=== PATIENT | male | born 1955 | race American Indian/Alaskan Native ===

== ENCOUNTER 2017-08-13 12:06 | Emergency (ER) | payer OTHER ==
[2017-08-13] MEDS ORDERED: Sodium Chloride 0.9% 2.5 ML Syringe FLUSH PRN (12:24)
[2017-08-13] MEDS ORDERED: Sodium Chloride 0.9% 10 ML Syringe FLUSH PRN (12:24)
--- NOTE | 2017-08-13 12:30 | EDM.PDOC ---
ED HPI GENERAL MEDICAL PROBLEM - General Chief Complaint: Lower Extremity Injury/Pain Stated Complaint: R FOOT PAIN Time Seen by Provider: 08/13/17 12:25 Source of Information: Reports: Patient History Limitations: Reports: No Limitations - History of Present Illness INITIAL COMMENTS - FREE TEXT/NARRATIVE: HISTORY AND PHYSICAL: []61-year-old male presenting with right foot pain History of Present Illness: []Patient states for 2 days his foot has been hurting Review of Systems: As per history of present illness and below otherwise all systems reviewed and negative. Past medical history: As per history of present illness and as reviewed below otherwise noncontributory. Surgical history: As per history of present illness and as reviewed below otherwise noncontributory. Social history: No reported history of drug or alcohol abuse. Family history: As per history of present illness and as reviewed below otherwise noncontributory. Physical exam: Alert oriented male who is answering questions in full sentences without any shortness of breath. HEENT: Atraumatic, normocehpalic, pupils reactive, negative for conjunctival pallor or scleral icterus, mucous membranes moist, throat clear, neck supple, nontender, trachea midline. Lungs: Clear to auscultation, breath sounds equal bilaterally, chest non tender. Heart: S1S2, regular, negative for clicks, rubs, or JVD. Abdomen: Soft, nondistended, nontender. Negative for masses or hepatossplenmegaly. Negative for costovertebral tenderness. Pelvis: Stable nontender. Genitourinary: Deferred. Rectal: Deferred Extremities: Right foot is edematous erythema from toes to the ankles there is open scan from the second third and fourth toe up to mid dorsum of his foot negative for cords or calf pain. Neurovascular unremarkable. Neuro: Awake, alert, oriented. Cranial nerves II through XII unremarkable. Cerebellum unremarkable. Motor and sensory unremarkable throughout. Exam nonfocal. Discussed case with Dr. Coburn, who is electronic masking system operator for surgery, she expressed concern for lack of vascular disease at this facility and his care would be improved by transfer to a larger facility. Diagnostics: [CBC CMP amylase lipase TSH blood cultures 2 A1c] Therapeutics: [Zosyn Vancomyacin] Insulin Impression: Gangrenous foot[] Hyperglycemia Plan: []Transfer patient to [facility] emergency room Definitive disposition and diagnosis as appropriate pending reevaluation and review of above. Onset: Gradual Duration: Chronic Location: Reports: Lower Extremity, Right Quality: Reports: Ache Severity: Severe Improves with: Reports: None Worsens with: Reports: None Associated Symptoms: Reports: No Other Symptoms right middle toe Pain Score (Numeric/FACES): 5 - Related Data Allergies Allergy/AdvReac Type Severity Reaction Status Date / Time No Known Allergies Allergy Verified 08/13/17 12:16 Home Meds: Home Meds Diaper,Brief,Adult, Disposable [Procare] 1 tab PO DAILY 08/13/17 [History] Naproxen Sodium [Aleve] 220 mg PO DAILY 08/13/17 [History] metFORMIN [Glucophage XR] 500 mg PO BID 08/13/17 [History] Past Medical History HEENT History: Reports: None Cardiovascular History: Reports: None Respiratory History: Reports: None Gastrointestinal History: Reports: None Genitourinary History: Reports: None Musculoskeletal History: Reports: None Neurological History: Reports: None Psychiatric History: Reports: None Endocrine/Metabolic History: Reports: Diabetes, Type II Hematologic History: Reports: None Immunologic History: Reports: None Oncologic (Cancer) History: Reports: None Dermatologic History: Reports: None - Infectious Disease History Infectious Disease History: Reports: Chicken Pox, Other (See Below) Other Infectious Disease History: childhood - Past Surgical History Head Surgeries/Procedures: Reports: None HEENT Surgical History: Reports: None Cardiovascular Surgical History: Reports: None Respiratory Surgical History: Reports: None GI Surgical History: Reports: None Male Surgical History: Reports: None Endocrine Surgical History: Reports: None Neurological Surgical History: Reports: None Musculoskeletal Surgical History: Reports: None Oncologic Surgical History: Reports: None Dermatological Surgical History: Reports: None Social & Family History - Family History Family Medical History: Noncontributory - Tobacco Use Smoking Status *Q: Never Smoker Second Hand Smoke Exposure: No - Caffeine Use Caffeine Use: Reports: None - Recreational Drug Use Recreational Drug Use: No Review of Systems - Review of Systems Review Of Systems: ROS reveals no pertinent complaints other than HPI. ED EXAM, GENERAL - Physical Exam Exam: See Below Course - Vital Signs Last Recorded V/S: Last Vital Signs Temp 36.8 C 08/13/17 14:02 Pulse 121 H 08/13/17 16:26 Resp 16 08/13/17 16:26 BP 138/87 08/13/17 16:26 Pulse Ox 94 L 08/13/17 16:26 - Orders/Labs/Meds Orders: Active Orders 24 hr Category Date Time Status EKG Documentation Completion [RC] STAT Care 08/13/17 12:24 Active CULTURE BLOOD [BC] Stat Lab 08/13/17 12:35 Received CULTURE BLOOD [BC] Stat Lab 08/13/17 12:47 Received CULTURE WOUND [RM] Stat Lab 08/13/17 16:26 Received Sodium Chloride 0.9% [Saline Flush] Med 08/13/17 12:24 Active 10 ml FLUSH ASDIRECTED PRN Sodium Chloride 0.9% [Saline Flush] Med 08/13/17 12:24 Active 2.5 ml FLUSH ASDIRECTED PRN Blood Culture x2 Reflex Set [OM.PC] Stat Oth 08/13/17 12:24 Ordered Saline Lock Insert [OM.PC] Stat Oth 08/13/17 12:24 Ordered Medication Orders Sodium Chloride (Saline Flush) 10 ml FLUSH ASDIRECTED PRN PRN Reason: Keep Vein Open Sodium Chloride (Saline Flush) 2.5 ml FLUSH ASDIRECTED PRN PRN Reason: Keep Vein Open Labs: Laboratory Tests 08/13/17 08/13/17 08/13/17 Range/Units 12:24 12:35 12:35 WBC 21.03 H (4.0-11.0) K/uL RBC 4.94 (4.50-5.90) M/uL Hgb 14.8 (13.0-17.0) g/dL Hct 43.2 (38.0-50.0) % MCV 87.4 (80.0-98.0) fL MCH 30.0 (27.0-32.0) pg MCHC 34.3 (31.0-37.0) g/dL RDW Std Deviation 40.0 (28.0-62.0) fl RDW Coeff of Brandi 13 (11.0-15.0) % Plt Count 360 (150-400) K/uL MPV 10.30 (7.40-12.00) fL Add Manual Diff YES Neutrophils % (Manual) 90 H (48.0-80.0) % Band Neutrophils % 6 % Lymphocytes % (Manual) 3 L (16.0-40.0) % Monocytes % (Manual) 1 (0.0-15.0) % Nucleated RBC % 0.0 /100WBC Absolute Seg Neuts 18.9 H (1.4-5.7) Band Neutrophils # 1.3 Lymphocytes # (Manual) 0.6 (0.6-2.4) Monocytes # (Manual) 0.2 (0.0-0.8) Nucleated RBCs # 0 K/uL INR 1.13 Sodium (136-148) mmol/L Potassium (3.5-5.1) mmol/L Chloride (98-107) mmol/L Carbon Dioxide (21.0-32.0) mmol/L BUN (7.0-18.0) mg/dL Creatinine (0.8-1.3) mg/dL Est Cr Clr Drug Dosing mL/min Estimated GFR (MDRD) ml/min Glucose (74-106) mg/dL POC Glucose (60-110) mg/dL Hemoglobin A1c (4.5-6.2) % Calcium (8.5-10.1) mg/dL Total Bilirubin (0.2-1.0) mg/dL AST (15-37) IU/L ALT (14-63) IU/L Alkaline Phosphatase (46-116) U/L Total Protein (6.4-8.2) g/dL Albumin (3.4-5.0) g/dL Globulin (2.0-3.5) g/dL Albumin/Globulin Ratio (1.3-2.8) Amylase (25-115) U/L Lipase (73-393) U/L TSH 3rd Generation (0.36-3.74) uIU/mL Urine Color YELLOW Urine Appearance CLEAR Urine pH 5.5 (5.0-8.0) Ur Specific Carver <= 1.005 (1.001-1.035) Urine Protein NEGATIVE (NEGATIVE) mg/dL Urine Glucose (UA) >=1000 (NEGATIVE) mg/dL Urine Ketones 15 H (NEGATIVE) mg/dL Urine Occult Blood SMALL H (NEGATIVE) Urine Nitrite NEGATIVE (NEGATIVE) Urine Bilirubin NEGATIVE (NEGATIVE) Urine Urobilinogen 1.0 (<2.0) EU/dL Ur Leukocyte Esterase NEGATIVE (NEGATIVE) 08/13/17 08/13/17 08/13/17 Range/Units 12:35 12:35 14:29 WBC (4.0-11.0) K/uL RBC (4.50-5.90) M/uL Hgb (13.0-17.0) g/dL Hct (38.0-50.0) % MCV (80.0-98.0) fL MCH (27.0-32.0) pg MCHC (31.0-37.0) g/dL RDW Std Deviation (28.0-62.0) fl RDW Coeff of Brandi (11.0-15.0) % Plt Count (150-400) K/uL MPV (7.40-12.00) fL Add Manual Diff Neutrophils % (Manual) (48.0-80.0) % Band Neutrophils % % Lymphocytes % (Manual) (16.0-40.0) % Monocytes % (Manual) (0.0-15.0) % Nucleated RBC % /100WBC Absolute Seg Neuts (1.4-5.7) Band Neutrophils # Lymphocytes # (Manual) (0.6-2.4) Monocytes # (Manual) (0.0-0.8) Nucleated RBCs # K/uL INR Sodium 130 L (136-148) mmol/L Potassium 4.0 (3.5-5.1) mmol/L Chloride 92 L (98-107) mmol/L Carbon Dioxide 24.8 (21.0-32.0) mmol/L BUN 19 H (7.0-18.0) mg/dL Creatinine 1.0 (0.8-1.3) mg/dL Est Cr Clr Drug Dosing 65.77 mL/min Estimated GFR (MDRD) > 60.0 ml/min Glucose 444 H (74-106) mg/dL POC Glucose 327 H (60-110) mg/dL Hemoglobin A1c 10.1 H (4.5-6.2) % Calcium 9.0 (8.5-10.1) mg/dL Total Bilirubin 0.5 (0.2-1.0) mg/dL AST 27 (15-37) IU/L ALT 54 (14-63) IU/L Alkaline Phosphatase 184 H (46-116) U/L Total Protein 7.9 (6.4-8.2) g/dL Albumin 2.3 L (3.4-5.0) g/dL Globulin 5.6 H (2.0-3.5) g/dL Albumin/Globulin Ratio 0.4 L (1.3-2.8) Amylase 11 L (25-115) U/L Lipase 115 (73-393) U/L TSH 3rd Generation 1.13 (0.36-3.74) uIU/mL Urine Color Urine Appearance Urine pH (5.0-8.0) Ur Specific Carver (1.001-1.035) Urine Protein (NEGATIVE) mg/dL Urine Glucose (UA) (NEGATIVE) mg/dL Urine Ketones (NEGATIVE) mg/dL Urine Occult Blood (NEGATIVE) Urine Nitrite (NEGATIVE) Urine Bilirubin (NEGATIVE) Urine Urobilinogen (<2.0) EU/dL Ur Leukocyte Esterase (NEGATIVE) 08/13/17 Range/Units 15:44 WBC (4.0-11.0) K/uL RBC (4.50-5.90) M/uL Hgb (13.0-17.0) g/dL Hct (38.0-50.0) % MCV (80.0-98.0) fL MCH (27.0-32.0) pg MCHC (31.0-37.0) g/dL RDW Std Deviation (28.0-62.0) fl RDW Coeff of Brandi (11.0-15.0) % Plt Count (150-400) K/uL MPV (7.40-12.00) fL Add Manual Diff Neutrophils % (Manual) (48.0-80.0) % Band Neutrophils % % Lymphocytes % (Manual) (16.0-40.0) % Monocytes % (Manual) (0.0-15.0) % Nucleated RBC % /100WBC Absolute Seg Neuts (1.4-5.7) Band Neutrophils # Lymphocytes # (Manual) (0.6-2.4) Monocytes # (Manual) (0.0-0.8) Nucleated RBCs # K/uL INR Sodium (136-148) mmol/L Potassium (3.5-5.1) mmol/L Chloride (98-107) mmol/L Carbon Dioxide (21.0-32.0) mmol/L BUN (7.0-18.0) mg/dL Creatinine (0.8-1.3) mg/dL Est Cr Clr Drug Dosing mL/min Estimated GFR (MDRD) ml/min Glucose (74-106) mg/dL POC Glucose 162 H (60-110) mg/dL Hemoglobin A1c (4.5-6.2) % Calcium (8.5-10.1) mg/dL Total Bilirubin (0.2-1.0) mg/dL AST (15-37) IU/L ALT (14-63) IU/L Alkaline Phosphatase (46-116) U/L Total Protein (6.4-8.2) g/dL Albumin (3.4-5.0) g/dL Globulin (2.0-3.5) g/dL Albumin/Globulin Ratio (1.3-2.8) Amylase (25-115) U/L Lipase (73-393) U/L TSH 3rd Generation (0.36-3.74) uIU/mL Urine Color Urine Appearance Urine pH (5.0-8.0) Ur Specific Carver (1.001-1.035) Urine Protein (NEGATIVE) mg/dL Urine Glucose (UA) (NEGATIVE) mg/dL Urine Ketones (NEGATIVE) mg/dL Urine Occult Blood (NEGATIVE) Urine Nitrite (NEGATIVE) Urine Bilirubin (NEGATIVE) Urine Urobilinogen (<2.0) EU/dL Ur Leukocyte Esterase (NEGATIVE) Meds: Medications Generic Name Dose Route Start Last Admin Trade Name Brianna PRN Reason Stop Dose Admin Sodium Chloride 10 ml 08/13/17 12:24 Saline Flush FLUSH ASDIRECTED PRN Keep Vein Open Sodium Chloride 2.5 ml 08/13/17 12:24 Saline Flush FLUSH ASDIRECTED PRN Keep Vein Open Discontinued Medications Generic Name Dose Route Start Last Admin Trade Name Brianna PRN Reason Stop Dose Admin Lactated Ringer's 1,000 mls @ 999 mls/hr 08/13/17 12:33 08/13/17 12:48 Ringers, Lactated IV 08/13/17 13:33 999 mls/hr .BOLUS ONE Administration Piperacillin Sod/Tazobactam 50 mls @ 100 mls/hr 08/13/17 12:34 08/13/17 12:54 Sod 3.375 gm/ Sodium Chloride IV 08/13/17 13:03 100 mls/hr ONETIME ONE Administration Vancomycin HCl 1 gm/ Sodium 250 mls @ 250 mls/hr 08/13/17 12:34 08/13/17 13: 36 Chloride IV 08/13/17 13:33 250 mls/hr ONETIME ONE Administration Insulin Human Regular 10 unit 08/13/17 13:44 08/13/17 13:53 Novolin R IVPUSH 08/13/17 13:45 10 unit ONETIME ONE Administration Protocol Insulin Human Regular 10 unit 08/13/17 14:30 08/13/17 14:57 Novolin R IVPUSH 08/13/17 14:31 10 unit ONETIME ONE Administration Protocol Morphine Sulfate 2 mg 08/13/17 13:49 08/13/17 13:53 Morphine IVPUSH 08/13/17 13:50 2 mg ONETIME ONE Administration Departure - Departure Time of Disposition: 17:16 Disposition: DC/Tfer to Acute Hospital 02 Condition: Good Clinical Impression: Gangrene of right foot - Discharge Information Referrals: PCP,None [Primary Care Provider] - Forms: ED Department Discharge - My Orders Last 24 Hours: My Active Orders 08/13/17 12:24 EKG Documentation Completion [RC] STAT Sodium Chloride 0.9% [Saline Flush] 10 ml FLUSH ASDIRECTED PRN Sodium Chloride 0.9% [Saline Flush] 2.5 ml FLUSH ASDIRECTED PRN Blood Culture x2 Reflex Set [OM.PC] Stat Saline Lock Insert [OM.PC] Stat 08/13/17 12:35 CULTURE BLOOD [BC] Stat 08/13/17 12:47 CULTURE BLOOD [BC] Stat 08/13/17 16:26 CULTURE WOUND [RM] Stat - Assessment/Plan Last 24 Hours: My Active Orders 08/13/17 12:24 EKG Documentation Completion [RC] STAT Sodium Chloride 0.9% [Saline Flush] 10 ml FLUSH ASDIRECTED PRN Sodium Chloride 0.9% [Saline Flush] 2.5 ml FLUSH ASDIRECTED PRN Blood Culture x2 Reflex Set [OM.PC] Stat Saline Lock Insert [OM.PC] Stat 08/13/17 12:35 CULTURE BLOOD [BC] Stat 08/13/17 12:47 CULTURE BLOOD [BC] Stat 08/13/17 16:26 CULTURE WOUND [RM] Stat
[2017-08-13] MEDS ORDERED: Lactated Ringers 1,000 ML IV ONE (12:33)
[2017-08-13] MEDS ORDERED: Piperacillin/Tazobactam 3.375 GM in Sodium Chloride 0.9% 50 ML IV ONE (12:34)
[2017-08-13 13:36] LABS: CHLORIDE,CL 92 mmol/L (98-107); SODIUM,NA 130 mmol/L (136-148)
--- NOTE | 2017-08-13 13:36 | CR ---
EXAMINATION: Portable chest radiograph. HISTORY: Shortness of breath. FINDINGS: The trachea is midline. The cardiomediastinal silhouette is within normal limits. No pulmonary infilt rates, effusions or pneumothorax. Osseous structures appear unremarkable. IMPRESSION: No acute cardiopulmonary process.
--- NOTE | 2017-08-13 13:37 | CR ---
EXAMINATION: Right foot HISTORY: Pain COMPARISON: None TECHNIQUE: 2 views FINDINGS: There is no acute osseous abnormality, dislocation, or fracture. Bone mineralization and jessica int spaces appear normal. Moderate soft tissue swelling and subcutaneous gas is noted throughout the midfoot and forefoot. Mild subchondral cystic changes noted within the tibiotalar joint. Tiny plantar calcaneal spur. IMPRESSION: 1. Soft tissue swelling and subcutaneous gas within the midfoot and forefoot. Correlate clinically fo r gas forming infectious process.
[2017-08-13] MEDS ORDERED: Insulin Regular, Human 100 Units/ML 10 ML Vial IVPUSH ONE ×2 (13:44→14:30)
[2017-08-13] MEDS ORDERED: Morphine 2 MG/ML Syringe IVPUSH ONE (13:49)
== END 2017-08-13 17:30 ==
LOC: MW.ED 12:06
DX: E11.52 Type 2 diabetes mellitus with diabetic peripheral angiopathy with gangrene (principal); E11.65 Type 2 diabetes mellitus with hyperglycemia; I96 Gangrene, not elsewhere classified; Z79.84 Long term (current) use of oral hypoglycemic drugs; Z79.899 Other long term (current) drug therapy
CPT/HCPCS: 36415; 71045; 73620; 80053; 81003; 82150; 82962; 83036; 83690; 84443; 85025; 85610; 87040; 87070; 93005; 96365; 96366; 96368; 96375; 96376; 99285; J2270; J2543; J3370; J7050; J7120; 87077; 87186; 99283; J1815-GY

== ENCOUNTER 2019-07-14 15:22 | Emergency (ER) | payer SELFPAY ==
[2019-07-14] MEDS ORDERED: Sodium Chloride 0.9% 1,000 ML IV ONE (17:20)
[2019-07-14] MEDS ORDERED: Morphine 10 MG/ML Syringe IVPUSH ONE (17:20)
[2019-07-14 18:09] LABS: CARBON DIOXIDE,CO2 25.1 mmol/L (21.0-32.0); POTASSIUM,K 4.9 mmol/L (3.5-5.1)
[2019-07-14] MEDS ORDERED: Iopamidol 755 MG/ML 200 ML Multipack Bottle IVPUSH ONE (19:37)
--- NOTE | 2019-07-14 20:05 | CT ---
CT angiogram of lower extremities Technique: Multiple axial sections were obtained from above the aortoiliac bifurcation inferiorly through the iliac arteries and superficial femoral artery and popliteal artery on the right side and on the left side to the trifurcation vessel bifurcation. Findings: Distal aorta shows atherosclerotic change without focal occlusion or stenosis. Common iliac arteries on both sides are patent. Internal iliac arteries on both sides shows atherosclerotic plaque with mild areas of narrowing. External iliac arteries on both sides show calcified plaque but no stenosis. Right superficial femoral artery is occluded into the popliteal artery. Diffuse soft tissue edema is seen within the distal right stump. Air is noted within the soft tissues suggesting the possibility of soft tissue infection or skin injury. Left lower extremity shows scattered atherosclerotic calcification without focal stenosis or occlusion within the superficial femoral artery. There are 3 proximal runoff vessels being seen. Impression: 1. Occluded right superficial femoral artery and popliteal artery. 2. Diffuse edematous change within the stump with soft tissue air either due to soft tissue infection or skin injury. 3. Other findings as noted above which are felt to be nonacute. Diagnostic code #5 This report was dictated in [place] Standard Time
--- NOTE | 2019-07-14 20:05 | US ---
Right lower extremity deep venous ultrasound: Duplex and color Doppler evaluation was obtained of the right common femoral, superficial femoral, popliteal vein and proximal posterior tibial vein. Below the knee amputation is noted. Subcutaneous edema is noted within the stump. There may be a superficial vein within the stump that shows a thrombus. Deep vein show normal compression and Doppler blood flow. Impression: 1. Edematous change within the stump with possible thrombus within a superficial vein, i.e. superficial thrombophlebitis. 2. No findings of deep venous thrombosis within the right lower extremity. Diagnostic code #3 This report was dictated in [place] Standard Time
[2019-07-14] MEDS ORDERED: Piperacillin/Tazobactam 4.5 GM in Sodium Chloride 0.9% 100 ML IV ONE (21:06)
[2019-07-14] MEDS ORDERED: HYDROmorphone 1 MG/ML Syringe IVPUSH ONE (21:13)
[2019-07-14] MEDS ORDERED: Sodium Chloride 0.9% 1,000 ML IV STA (21:18)
--- NOTE | 2019-07-14 21:58 | EDM.PDOC ---
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 He states that a couple weeks ago he started having some discomfort which was different than his normal pain. He started feeling spasms and then the area started getting cold to the touch and black. He went to an [facility] doctor who told him that he did not know what was going on and he discharged him from the ER. The pain has been getting worse and now the area below his knee is swelling and colder to the touch and more painful. No fevers, but he does not feel well. Chest pain, no shortness of breath, no other acute complaints. Right Lower Leg Pain Score (Numeric/FACES): 8 - Related Data Allergies Allergy/AdvReac Type Severity Reaction Status Date / Time No Known Allergies Allergy Verified 07/14/19 15:33 Home Meds: Home Meds Diaper,Brief,Adult, Disposable [Procare] 1 tab PO DAILY 08/13/17 [History] metFORMIN [Glucophage XR] 500 mg PO BID 08/13/17 [History] Aspirin [Lo-Dose Aspirin EC] 81 mg PO DAILY 07/14/19 [History] Gabapentin [Neurontin] 600 mg PO DAILY 07/14/19 [History] Past Medical History HEENT History: Reports: None Cardiovascular History: Reports: None Respiratory History: Reports: None Gastrointestinal History: Reports: None Genitourinary History: Reports: None Musculoskeletal History: Reports: None Neurological History: Reports: None Psychiatric History: Reports: None Endocrine/Metabolic History: Reports: Diabetes, Type II Hematologic History: Reports: None Immunologic History: Reports: None Oncologic (Cancer) History: Reports: None Dermatologic History: Reports: None - Infectious Disease History Infectious Disease History: Reports: Chicken Pox Other Infectious Disease History: childhood - Past Surgical History Head Surgeries/Procedures: Reports: None HEENT Surgical History: Reports: None Cardiovascular Surgical History: Reports: None Respiratory Surgical History: Reports: None GI Surgical History: Reports: None Male Surgical History: Reports: None Endocrine Surgical History: Reports: None Neurological Surgical History: Reports: None Musculoskeletal Surgical History: Reports: Other (See Below) Other Musculoskeletal Surgeries/Procedures:: Right BKA Oncologic Surgical History: Reports: None Dermatological Surgical History: Reports: None Social & Family History - Family History Family Medical History: Noncontributory - Tobacco Use Smoking Status *Q: Never Smoker - Caffeine Use Caffeine Use: Reports: Coffee - Recreational Drug Use Recreational Drug Use: No Review of Systems - Review of Systems Review Of Systems: See Below (Positive for right lower extremity pain and swelling and coldness, negative for chest pain, negative shortness of breath, negative for fevers, all other Positives and pertinent negatives as per HPI. All other pertinent systems were reviewed and are negative) ED EXAM, GENERAL - Physical Exam Exam: See Below Free Text/Narrative:: Constitutional: Nontoxic, appears deconditioned, looks very uncomfortable. HEENT: Normocephalic, Atraumatic, EOMI Neck: Normal range of motion, No stridor, trachea midline Respiratory: No respiratory distress, No tachypnea Cardiovascular: Tachycardic without murmurs, rubs or gallops Gastrointestinal: Soft and nontender Genital / Urinary: Deferred Musculoskeletal: All 4 extremities are present but the right lower extremity has a BKA on the right, the stump on the right is necrotic, and from the knee distally the skin is cold, with a dusky reticular pattern and it appears edematous Back: FROM Integument: Warm, Dry, Color is ethnicity appropriate, No rash except on the leg as above. Neuro: Alert, Awake, oriented x3, cranial nerves grossly intact, no focal deficits noted Psych: Affect, Judgement, mood normal Course - Vital Signs Text/Narrative:: The patient's care had been initiated and then his care transferred to md. He is afebrile but the patient did have a mildly elevated lactic acid with a heart rate of 130 so there was a concern for early sepsis. The patient has received fluids and his heart rate is improving and a second lactic acid is normal. Imaging shows some arterial occlusions in the distal stump but these typically are ligated with these types of surgeries; however, given the rest of the presentation of the stump which is the necrotic area and the numerous edema and air in the soft tissues of the stump, I suspect not only necrotic injury from lack of collateral arterial blood flow, but the patient most likely has an anaerobic infection, possibly polymicrobial. Given this, the patient has not only been given Dilaudid for pain control, the patient will also receive a combination of vancomycin and Zosyn to cover broad- spectrum infections especially the anaerobic bacteria as well as skin george. The patient's surgeries were performed at [facility] the past and they do have vascular available which we do not at this facility. I spoke with Dr. Smiley, vascular surgery and Dr. Griggs in the ER and they accepted the patient in transfer. CRITICAL CARE TIME Critical care time on this patient was 35 minutes and this was due to the significant nature of the illness and the need for my prompt and continued intervention and oversight. It involved patient evaluations, lab and imaging interpretations, medical management, and physician consultation. Critical care time is exclusive of billable procedures. . Last Recorded V/S: Last Vital Signs Temp 36.3 C 07/14/19 21:00 Pulse 125 H 07/14/19 21:00 Resp 16 07/14/19 18:15 BP 108/75 07/14/19 21:00 Pulse Ox 97 07/14/19 21:00 - Orders/Labs/Meds Orders: Active Orders 24 hr Category Date Time Status Sodium Chloride 0.9% [Normal Saline] 1,000 ml Med 07/14/19 21:18 Active IV NOW Vancomycin 1 gm Med 07/14/19 21:19 Active Sodium Chloride 0.9% [Normal Saline (AdvBag)] 250 ml IV ONETIME Medication Orders Sodium Chloride (Normal Saline) 1,000 mls @ 150 mls/hr IV NOW STA Stop: 07/15/19 03:57 Last Admin: 07/14/19 21:23 Dose: 150 mls/hr Vancomycin HCl 1 gm/ Sodium (Chloride) 250 mls @ 166 mls/hr IV ONETIME ONE Stop: 07/14/19 22:49 Labs: Laboratory Tests 07/14/19 07/14/19 07/14/19 Range/Units 17:35 17:35 17:35 WBC 10.91 (4.0-11.0) K/uL RBC 5.20 (4.50-5.90) M/uL Hgb 15.1 (13.0-17.0) g/dL Hct 43.6 (38.0-50.0) % MCV 83.8 (80.0-98.0) fL MCH 29.0 (27.0-32.0) pg MCHC 34.6 (31.0-37.0) g/dL RDW Std Deviation 37.7 (28.0-62.0) fl RDW Coeff of Brandi 12 (11.0-15.0) % Plt Count 317 (150-400) K/uL MPV 9.90 (7.40-12.00) fL Neut % (Auto) 77.8 (48.0-80.0) % Lymph % (Auto) 12.7 L (16.0-40.0) % Colbert % (Auto) 8.2 (0.0-15.0) % Eos % (Auto) 0.9 (0.0-7.0) % Baso % (Auto) 0.4 (0.0-1.5) % Neut # (Auto) 8.5 H (1.4-5.7) K/uL Lymph # (Auto) 1.4 (0.6-2.4) K/uL Colbert # (Auto) 0.9 H (0.0-0.8) K/uL Eos # (Auto) 0.1 (0.0-0.7) K/uL Baso # (Auto) 0.0 (0.0-0.1) K/uL Nucleated RBC % 0.0 /100WBC Nucleated RBCs # 0 K/uL D-Dimer, Quantitative (0.0-0.50) mg/L FEU Lactate 2.5 H* (0.20-2.00) mmol/L Sodium 131 L (136-148) mmol/L Potassium 4.9 (3.5-5.1) mmol/L Chloride 94 L (98-107) mmol/L Carbon Dioxide 25.1 (21.0-32.0) mmol/L BUN 20 H (7.0-18.0) mg/dL Creatinine 1.3 (0.8-1.3) mg/dL Est Cr Clr Drug Dosing 51.12 mL/min Estimated GFR (MDRD) 55.4 ml/min Glucose 307 H (74-106) mg/dL Calcium 9.5 (8.5-10.1) mg/dL Total Bilirubin 0.9 (0.2-1.0) mg/dL AST 29 (15-37) IU/L ALT 25 (14-63) IU/L Alkaline Phosphatase 148 H (46-116) U/L Creatine Kinase 241 (26-308) U/L Total Protein 8.7 H (6.4-8.2) g/dL Albumin 2.6 L (3.4-5.0) g/dL Globulin 6.1 H (2.6-4.0) g/dL Albumin/Globulin Ratio 0.4 L (0.9-1.6) 07/14/19 07/14/19 Range/Units 17:35 20:04 WBC (4.0-11.0) K/uL RBC (4.50-5.90) M/uL Hgb (13.0-17.0) g/dL Hct (38.0-50.0) % MCV (80.0-98.0) fL MCH (27.0-32.0) pg MCHC (31.0-37.0) g/dL RDW Std Deviation (28.0-62.0) fl RDW Coeff of Brandi (11.0-15.0) % Plt Count (150-400) K/uL MPV (7.40-12.00) fL Neut % (Auto) (48.0-80.0) % Lymph % (Auto) (16.0-40.0) % Colbert % (Auto) (0.0-15.0) % Eos % (Auto) (0.0-7.0) % Baso % (Auto) (0.0-1.5) % Neut # (Auto) (1.4-5.7) K/uL Lymph # (Auto) (0.6-2.4) K/uL Colbert # (Auto) (0.0-0.8) K/uL Eos # (Auto) (0.0-0.7) K/uL Baso # (Auto) (0.0-0.1) K/uL Nucleated RBC % /100WBC Nucleated RBCs # K/uL D-Dimer, Quantitative 0.48 (0.0-0.50) mg/L FEU Lactate 1.6 (0.20-2.00) mmol/L Sodium (136-148) mmol/L Potassium (3.5-5.1) mmol/L Chloride (98-107) mmol/L Carbon Dioxide (21.0-32.0) mmol/L BUN (7.0-18.0) mg/dL Creatinine (0.8-1.3) mg/dL Est Cr Clr Drug Dosing mL/min Estimated GFR (MDRD) ml/min Glucose (74-106) mg/dL Calcium (8.5-10.1) mg/dL Total Bilirubin (0.2-1.0) mg/dL AST (15-37) IU/L ALT (14-63) IU/L Alkaline Phosphatase (46-116) U/L Creatine Kinase (26-308) U/L Total Protein (6.4-8.2) g/dL Albumin (3.4-5.0) g/dL Globulin (2.6-4.0) g/dL Albumin/Globulin Ratio (0.9-1.6) Meds: Medications Generic Name Dose Route Start Last Admin Trade Name Freq PRN Reason Stop Dose Admin Sodium Chloride 1,000 mls @ 150 mls/hr 07/14/19 21:18 07/14/19 21:23 Normal Saline IV 07/15/19 03:57 150 mls/hr NOW STA Administration Vancomycin HCl 1 gm/ Sodium 250 mls @ 166 mls/hr 07/14/19 21:19 Chloride IV 07/14/19 22:49 ONETIME ONE Discontinued Medications Generic Name Dose Route Start Last Admin Trade Name Freq PRN Reason Stop Dose Admin Hydromorphone HCl 1 mg 07/14/19 21:13 07/14/19 21:23 Dilaudid IVPUSH 07/14/19 21:14 1 mg ONETIME ONE Administration Sodium Chloride 1,000 mls @ 999 mls/hr 07/14/19 17:20 07/14/19 17:48 Normal Saline IV 07/14/19 18:20 999 mls/hr .Bolus ONE Administration Piperacillin Sod/Tazobactam 100 mls @ 100 mls/hr 07/14/19 21:06 07/14/19 21: 27 Sod 4.5 gm/ Sodium Chloride IV 07/14/19 22:05 100 mls/hr ONETIME ONE Administration Vancomycin HCl 1.5 gm/ Sodium 250 mls @ 167 mls/hr 07/14/19 21:07 07/14/19 21 :38 Chloride IV 07/14/19 22:36 Not Given ONETIME ONE Iopamidol 100 ml 07/14/19 19:37 07/14/19 19:38 Isovue Multipack-370 (76%) IVPUSH 07/14/19 19:38 100 ml ONETIME ONE Administration Morphine Sulfate 6 mg 07/14/19 17:20 07/14/19 17:49 Morphine IVPUSH 07/14/19 17:21 6 mg ONETIME ONE Administration Departure - Departure Time of Disposition: 22:10 Disposition: DC/[facility]fer to [facility] 02 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, Amputation stump necrosis, Amputation stump infection - Discharge Information Referrals: PCP,None [Primary Care Provider] - Forms: ED Department Discharge Sepsis Event Note - Evaluation Sepsis Screening Result: No Definite Risk - Focused Exam Vital Signs: Vital Signs Temp Pulse Resp BP Pulse Ox 07/14/19 21:00 36.3 C 125 H 108/75 97 07/14/19 18:15 130 H 16 136/88 95 07/14/19 17:45 132 H 18 113/78 96 07/14/19 15:34 37.1 C 142 H 17 129/85 97 Date Exam was Performed: 07/14/19 Time Exam was Performed: 22:09 - My Orders Last 24 Hours: My Active Orders 07/14/19 21:18 Sodium Chloride 0.9% [Normal Saline] 1,000 ml IV NOW 07/14/19 21:19 Vancomycin 1 gm Sodium Chloride 0.9% [Normal Saline (AdvBag)] 250 ml IV ONETIME - Assessment/Plan Last 24 Hours: My Active Orders 07/14/19 21:18 Sodium Chloride 0.9% [Normal Saline] 1,000 ml IV NOW 07/14/19 21:19 Vancomycin 1 gm Sodium Chloride 0.9% [Normal Saline (AdvBag)] 250 ml IV ONETIME
== END 2019-07-14 22:40 ==
LOC: MW.ED 15:22
DX: T87.53 Necrosis of amputation stump, right lower extremity (principal); T87.43 Infection of amputation stump, right lower extremity; I70.201 Unspecified atherosclerosis of native arteries of extremities, right leg; E11.9 Type 2 diabetes mellitus without complications; Z79.84 Long term (current) use of oral hypoglycemic drugs; Z79.82 Long term (current) use of aspirin; Z79.899 Other long term (current) drug therapy
CPT/HCPCS: 36415; 73706; 80053; 82550; 83605; 85025; 85379; 93005; 93971; 96361; 96365; 96375; 99291; J1170; J2270; J2543; J3370; J7030; J7050; Q9967

== ENCOUNTER 2020-04-25 21:21 | Emergency (ER) | payer OTHER ==
[2020-04-25] MEDS ORDERED: Sodium Chloride 0.9% 2.5 ML Syringe FLUSH PRN (22:08)
[2020-04-25] MEDS ORDERED: Sodium Chloride 0.9% 10 ML Syringe FLUSH PRN (22:08)
--- NOTE | 2020-04-25 22:09 | EDM.PDOC ---
ED HPI GENERAL MEDICAL PROBLEM - General Chief Complaint: Skin Complaint Stated Complaint: LT LEFT SWOLLEN Time Seen by Provider: 04/25/20 21:58 - History of Present Illness INITIAL COMMENTS - FREE TEXT/NARRATIVE: 66-year-old male with history of multiple medical problems including right lower extremity AKA due to arterial occlusion in the past who is presenting with 1 week of left lower extremity swelling as well as several days now foul-smelling drainage erythema and discharge from wounds from his ankle to midway up his calf. He denies fevers or chills he denies chest pain shortness of breath or cough. Left Middle Posterior Leg Pain Score (Numeric/FACES): 4 - Related Data Allergies Allergy/AdvReac Type Severity Reaction Status Date / Time No Known Allergies Allergy Verified 07/14/19 15:33 Home Meds: Home Meds Diaper,Brief,Adult, Disposable [Procare] 1 tab PO DAILY 08/13/17 [History] Aspirin [Lo-Dose Aspirin EC] 81 mg PO DAILY 07/14/19 [History] Gabapentin [Neurontin] 300 mg PO QAM 07/14/19 [History] Non-Formulary Medication [NF Drug] 04/25/20 [History] glipiZIDE [Glucotrol XL] 04/25/20 [History] Sulfamethoxazole/Trimethoprim [Bactrim Ds Tablet] 1 each PO BID 10 Days #20 tablet 04/26/20 [Rx] cephALEXin [Keflex] 500 mg PO Q6H 10 Days #40 cap 04/26/20 [Rx] Past Medical History HEENT History: Reports: None Cardiovascular History: Reports: None Respiratory History: Reports: None Gastrointestinal History: Reports: None Genitourinary History: Reports: None Musculoskeletal History: Reports: None Neurological History: Reports: None Psychiatric History: Reports: None Endocrine/Metabolic History: Reports: Diabetes, Type II Hematologic History: Reports: None Immunologic History: Reports: None Oncologic (Cancer) History: Reports: None Dermatologic History: Reports: None - Infectious Disease History Infectious Disease History: Reports: Chicken Pox Other Infectious Disease History: childhood - Past Surgical History Head Surgeries/Procedures: Reports: None HEENT Surgical History: Reports: None Cardiovascular Surgical History: Reports: None Respiratory Surgical History: Reports: None GI Surgical History: Reports: None Male Surgical History: Reports: None Endocrine Surgical History: Reports: None Neurological Surgical History: Reports: None Musculoskeletal Surgical History: Reports: Other (See Below) Other Musculoskeletal Surgeries/Procedures:: Right BKA Oncologic Surgical History: Reports: None Dermatological Surgical History: Reports: None Social & Family History - Family History Family Medical History: No Pertinent Family History - Caffeine Use Caffeine Use: Reports: Coffee ED ROS GENERAL - Review of Systems Review Of Systems: See Below Free Text/Narrative/Comment: General: No fever. Skin: Per HPI Eyes: No vision problems. ENT: No sore throat. Neck: No neck stiffness. Respiratory: No shortness of breath. Cardiac: No chest pain. Gastrointestinal: No nausea, vomiting or abdominal pain. Urinary: No dysuria. Musculoskeletal: No myalgias/arthralgias. Neurologic: No headache. ED EXAM, SKIN/RASH Exam: See Below Text/Narrative:: General Appearance: No acute distress, appears comfortable Skin: Left lower extremity with nonpitting edema to just proximal to the knee there is no erythema or swelling of the left knee of the left ankle there is honey crusting and foul-smelling drainage associated with his edema as well as tender erythema from just proximal to the ankle to the mid juarez area no focal fluctuance or signs of abscess no crepitus or signs of deep space infection HEENT: Normocephalic/atraumatic, sclera anicteric, mucous membranes moist Neck: Normal range of motion Chest and Lungs: Bilateral breath sounds, clear to auscultation Cardiovascular: Regular rate and rhythm, no murmur Abdomen: Soft, non-tender Back: Normal Musculoskeletal: No edema or tenderness Neurologic: Awake, alert, no obvious deficits, moving all extremities Psychiatric: Appropriate, cooperative Course - Vital Signs Last Recorded V/S: Last Vital Signs Temp 97.0 F 04/26/20 01:04 Pulse 97 04/26/20 01:04 Resp 19 04/26/20 01:04 BP 147/88 H 04/26/20 01:04 Pulse Ox 95 04/26/20 01:04 - Orders/Labs/Meds Orders: Active Orders 24 hr Category Date Time Status CULTURE BLOOD [BC] Stat Lab 04/25/20 22:13 Received Blood Culture x2 Reflex Set [OM.PC] Stat Oth 04/25/20 22:08 Ordered Saline Lock Insert [OM.PC] Stat Oth 04/25/20 22:08 Ordered Labs: Laboratory Tests 04/25/20 04/25/20 Range/Units 22:13 22:13 WBC 7.40 (4.0-11.0) K/uL RBC 4.64 (4.50-5.90) M/uL Hgb 12.6 L (13.0-17.0) g/dL Hct 40.7 (38.0-50.0) % MCV 87.7 (80.0-98.0) fL MCH 27.2 (27.0-32.0) pg MCHC 31.0 (31.0-37.0) g/dL RDW Std Deviation 47.3 (28.0-62.0) fl RDW Coeff of Brandi 15 (11.0-15.0) % Plt Count 210 (150-400) K/uL MPV 10.80 (7.40-12.00) fL Neut % (Auto) 77.3 (48.0-80.0) % Lymph % (Auto) 14.1 L (16.0-40.0) % Emery % (Auto) 6.6 (0.0-15.0) % Eos % (Auto) 1.6 (0.0-7.0) % Baso % (Auto) 0.4 (0.0-1.5) % Neut # (Auto) 5.7 (1.4-5.7) K/uL Lymph # (Auto) 1.0 (0.6-2.4) K/uL Emery # (Auto) 0.5 (0.0-0.8) K/uL Eos # (Auto) 0.1 (0.0-0.7) K/uL Baso # (Auto) 0.0 (0.0-0.1) K/uL Nucleated RBC % 0.0 /100WBC Nucleated RBCs # 0 K/uL Sodium 139 (136-148) mmol/L Potassium 4.7 (3.5-5.1) mmol/L Chloride 105 (98-107) mmol/L Carbon Dioxide 30.0 (21.0-32.0) mmol/L BUN 26 H (7.0-18.0) mg/dL Creatinine 1.6 H (0.8-1.3) mg/dL Est Cr Clr Drug Dosing TNP Estimated GFR (MDRD) 43.5 ml/min Glucose 167 H (74-106) mg/dL Calcium 8.4 L (8.5-10.1) mg/dL Total Bilirubin 0.9 (0.2-1.0) mg/dL AST 14 L (15-37) IU/L ALT 22 (14-63) IU/L Alkaline Phosphatase 141 H (46-116) U/L Total Protein 7.1 (6.4-8.2) g/dL Albumin 3.4 (3.4-5.0) g/dL Globulin 3.7 (2.6-4.0) g/dL Albumin/Globulin Ratio 0.9 (0.9-1.6) Meds: Medications Discontinued Medications Generic Name Dose Route Start Last Admin Trade Name Freq PRN Reason Stop Dose Admin Cephalexin 500 mg 04/26/20 00:32 04/26/20 00:49 Keflex PO 04/26/20 00:33 500 mg ONETIME ONE Administration Sodium Chloride 10 ml 04/25/20 22:08 04/25/20 22:32 Saline Flush FLUSH 10 ml ASDIRECTED PRN Administration Keep Vein Open Sodium Chloride 2.5 ml 04/25/20 22:08 04/25/20 22:32 Saline Flush FLUSH 2.5 ml ASDIRECTED PRN Administration Keep Vein Open Trimethoprim/Sulfamethoxazole 1 tab 04/26/20 00:32 04/26/20 00:49 Septra Ds PO 04/26/20 00:33 1 tab ONETIME ONE Administration Departure - Departure Time of Disposition: 00:33 Disposition: Home, Self-Care 01 Condition: Good Clinical Impression: Cellulitis - Discharge Information *PRESCRIPTION DRUG MONITORING PROGRAM REVIEWED*: Not Applicable *COPY OF PRESCRIPTION DRUG MONITORING REPORT IN PATIENT HAYDEE: Not Applicable Prescriptions: Sulfamethoxazole/Trimethoprim [Bactrim Ds Tablet] 1 each PO BID 10 Days #20 tablet cephALEXin [Keflex] 500 mg PO Q6H 10 Days #40 cap Instructions: Cellulitis, Adult Referrals: [facility] [Primary Care Provider] - Forms: ED Department Discharge Additional Instructions: It is very important that you follow-up with your primary care doctor and keep a close eye on how your leg is doing if your swelling worsening since start to develop fevers or the redness spreads up your leg please return to the ER or see your primary doctor right away. The following information is given to patients seen in the emergency department who are being discharged to home. This information is to outline your options for follow-up care. We provide all patients seen in our emergency department with a follow-up referral. The need for follow-up, as well as the timing and circumstances, are variable depending upon the specifics of your emergency department visit. If you don't have a primary care physician on staff, we will provide you with a referral. We always advise you to contact your personal physician following an emergency department visit to inform them of the circumstance of the visit and for follow-up with them and/or the need for any referrals to a consulting specialist. The emergency department will also refer you to a specialist when appropriate. This referral assures that you have the opportunity for follow-up care with a specialist. All of these measure are taken in an effort to provide you with optimal care, which includes your follow-up. Under all circumstances we always encourage you to contact your private physician who remains a resource for coordinating your care. When calling for follow-up care, please make the office aware that this follow-up is from your recent emergency room visit. If for any reason you are refused follow-up, please contact the [facility] Emergency Department at and asked to speak to the emergency department charge nurse. Sepsis Event Note (ED) - Focused Exam Vital Signs: Vital Signs Temp Pulse Resp BP Pulse Ox 04/26/20 01:04 97.0 F 97 19 147/88 H 95 04/25/20 22:06 97.4 F 98 16 164/103 H 96 - My Orders Last 24 Hours: My Active Orders 04/25/20 22:08 Blood Culture x2 Reflex Set [OM.PC] Stat Saline Lock Insert [OM.PC] Stat 04/25/20 22:13 CULTURE BLOOD [BC] Stat - Assessment/Plan Last 24 Hours: My Active Orders 04/25/20 22:08 Blood Culture x2 Reflex Set [OM.PC] Stat Saline Lock Insert [OM.PC] Stat 04/25/20 22:13 CULTURE BLOOD [BC] Stat Assessment:: 64-year-old male presenting with signs and symptoms most consistent with left lower extremity edema and resulting cellulitis no clear sign of focal abscess. Labs including blood cultures have been drawn. Anticipate need for antibiotics. Patient strongly desires discharge his vital signs are good we will continue to reassess this given his past history ultrasound ordered as well to exclude DVT which may be contributing to his edema given that the patient has missed the last several doses of his anticoagulant. Ultrasound negative for DVT white blood cell count normal patient given initial dose of Bactrim Keflex here and discharged on Bactrim Keflex. Return precautions discussed and understood.
[2020-04-25 22:49] LABS: BLOOD UREA NITROGEN,BUN 26 mg/dL (7.0-18.0); CHLORIDE,CL 105 mmol/L (98-107); GLUCOSE RANDOM 167 mg/dL (74-106); POTASSIUM,K 4.7 mmol/L (3.5-5.1); SODIUM,NA 139 mmol/L (136-148)
--- NOTE | 2020-04-26 00:23 | US ---
INDICATION: Swelling COMPARISON: None TECHNIQUE: A compression venous ultrasound exam was performed of the left lower extremity using osborne-scale imaging, color Doppler and spectral Doppler analysis. FINDINGS: The common femoral vein, deep femoral vein, superficial femoral vein, and popliteal vein are compressible and demonstrate normal phasic flow with augmentation. The posterior tibial and peroneal veins are normal visualized. Subcutaneous edema is noted in the leg. IMPRESSION: No evidence of deep venous thrombosis. The leg veins are not visualized. Dictated by Tammie Nieto MD @ Apr 26 2020 12:16AM Signed by Dr. Tammie Nieto @ Apr 26 2020 12:20AM
[2020-04-26] MEDS ORDERED: Cephalexin 500 MG Cap PO ONE (00:32)
[2020-04-26] MEDS ORDERED: Sulfamethoxazole/Trimethoprim 800-160 MG Tab PO ONE (00:32)
== END 2020-04-26 01:04 | disposition home or self-care (01) ==
LOC: MW.ED 21:21
DX: L03.116 Cellulitis of left lower limb (principal); E11.9 Type 2 diabetes mellitus without complications; Z79.82 Long term (current) use of aspirin; Z79.899 Other long term (current) drug therapy; Z89.511 Acquired absence of right leg below knee
CPT/HCPCS: 36415; 80053; 85025; 87040; 93971; 99284; A9270